=== PATIENT | male | born 1980 | race African-American/Black ===

== ENCOUNTER 2020-01-12 01:24 | Emergency (ER) | payer MEDICAID ==
[2020-01-12] MEDS ORDERED: niCARdipine 25 MG/10 ML VIAL ONE (01:52)
[2020-01-12] MEDS ORDERED: Midazolam HCl 2 mg/2 ml Vial ONE ×2 (01:54→01:57)
[2020-01-12 02:00] LABS: Hemoglobin 13.5 g/dL (14.0-18.0); INR-International Normal Ratio 1.1; Mean Corpuscular HGB CONC 29.6 g/dL (32.0-36.0); Mean Corpuscular Hemoglobin 26.6 pg (27.0-31.0); Mean Corpuscular Volume 89.9 fL (78.0-98.0); PTT 25.2 sec (22.9-36.1); Prothrombin Time 13.8 sec (12.0-14.7); Red Blood Cell (RBC) Count 5.09 mill/uL (4.70-6.10); White Blood Cell (WBC) Count 9.4 thou/uL (4.8-10.8)
[2020-01-12 02:01] LABS: #Basophils 0.1 thou/uL (0.0-0.2); #Eosinphils 0.1 thou/uL (0.0-0.7); #Lymphocytes 2.2 thou/uL (1.20-3.40); #Monocytes 0.8 thou/uL (0.11-0.59); #Neutrophils 6.2 thou/uL (1.40-6.50); %Basophils 0.7 % (0.0-1.0); %Eosinophils 1.6 % (0.0-10.0); %Lymphocytes 23.3 % (21.0-51.0); %Monocytes 8.8 % (0.0-10.0); %Neutrophils 65.7 % (42.0-75.0); Mean Platelet Volume 6.8 fL (7.4-10.4); Platelet Count 231 thou/uL (130-400); RBC Distribution Width 18.5 % (11.5-14.5)
[2020-01-12 02:02] LABS: Anisocytosis MODERATE=16-30 cells (100X) (0-5/hpf); Hypochromia SLIGHT = 6-15 cells (100X) (0-5/hpf)
[2020-01-12 02:04] LABS: Burr Cells MARKED = >16 cells (100X) (0-1/hpf); Tear Drops SLIGHT = 2-5 cells (100X) (0-1/hpf)
[2020-01-12] MEDS ORDERED: Succinylcholine Chloride 20 MG/ML 10 ml SYRINGE FS ONE (02:05)
[2020-01-12] MEDS ORDERED: Rocuronium Bromide 10 MG/ML (10ML VIAL) ONE (02:05)
[2020-01-12 02:25] LABS: Carbon Dioxide 22 mmol/L (22-29); Chloride 103 mmol/L (98-107); Potassium 4.1 mmol/L (3.5-5.1); Sodium 144 mmol/L (136-145)
[2020-01-12 02:26] LABS: Anion Gap 23 mmol/L (10-20); BUN (Urea Nitrogen) 64 mg/dL (8.9-20.6); Calc. Creatinine Clearance 0 mL/min (70-130); Calcium 9.3 mg/dL (7.8-10.44); Estimated GFR-MDRD 10; Glucose 137 mg/dL (70-105)
[2020-01-12 02:27] LABS: ALT (SGPT) 95 U/L (8-55); AST (SGOT) 55 U/L (5-34); Albumin 4.8 g/dL (3.5-5.0); Alkaline Phosphatase 113 U/L (40-110); Bilirubin, Total 0.8 mg/dL (0.2-1.2); CKMB 1.7 ng/mL (0-6.6); Globulin 2.7 g/dL (2.4-3.5); Protein, Total 7.5 g/dL (6.0-8.3); Troponin I 0.078 ng/mL (< 0.028)
[2020-01-12 06:18] LABS: Bilirubin Negative (Negative); Blood, Urine Small (Negative); Clarity Clear (Clear); Glucose, Urine (Dipstick) Negative (Negative); Leukocyte Negative (Negative); Nitrite Negative (Negative); Protein, Urine (Dipstick) > or equal to 300 mg/dL (Neg-Trace); Urobilinogen 0.2 mg/dL (Less than 2)
[2020-01-12 06:22] LABS: MDiff Complete? YES
[2020-01-12 06:29] LABS: Bacteria/HPF 1+ HPF (None Seen); RBC/HPF 0-3 HPF (0-3); Squamous Epithelial 0-3 HPF (0-3); WBC/HPF 0-3 HPF (0-3)
--- NOTE | 2020-01-12 09:30 | CT ---
PRELIMINARY REPORT/DIRECT RADIOLOGY/EMERGENCY AFTER HOURS PROCEDURE This report was discussed with Davy Dale RN by Benita Da Silva on Jan 12, 2020 01:49:00 CDT. Koko gutierrez electronically signed by Benita Da Silva on January 12, 2020 1:52:00 AM CDT Exam: Unenhanced CT brain. History: Stroke. Comparison: None. Findings: Image quality is degraded due to motion artifact. Calvarium is intact. Paranasal sinuses are clear. Large hemorrhage is present centered within the right basal ganglia and extending into th e right temporal and frontal lobes. It measures 8.7 x 3.8 cm in AP by width. Blood products are pre sent within the right lateral ventricle, third ventricle, and fourth ventricle. There is narrowing o f the ambient cistern. There is midline shift from right to left measuring 1 cm. Sulcal effacement is present suggesting diffuse cerebral edema. Impression: Large intracranial hemorrhage measuring 8.7 x 3.8 cm centered in the right basal ganglia. Associated mass effect. Blood within the ventricles. Effacement of sulci concerning for diffuse c erebral edema. ELECTRONICALLY SIGNED BY: Lily Keith MD Jan 12, 2020 1:44:51 AM CDT FINAL REPORT CT STROKE PROTOCOL: I agree with the preliminary report provided. Image detail is limited by motion artifact. There is a large right-sided intraparenchymal hemorrhage centered within the region of the right basal ganglia measuring 8.6 x 3.9 cm suggesting mild surrounding vasogenic edema. There is intraventricular exten nicholas of hemorrhage into the right lateral ventricle, 3rd ventricle, and 4th ventricle. There is righ t-to-left midline shift of 1.4 cm. No hydrocephalus is evident. Visualized aspects of the basilar c istern remain patent. IMPRESSION: Large intraparenchymal hemorrhage within the right cerebral hemisphere centered at the level of the r ight basal ganglia with prominent surrounding vasogenic edema and mass effect inducing 1.4 cm of righ t-to-left midline shift. Additionally, there is hemorrhagic extension into the right lateral ventric le, 3rd ventricle, and 4th ventricle. Continued close CT followup is recommended. POS:
--- NOTE | 2020-01-12 10:55 | RAD ---
CHEST 1 VIEW: INDICATION: History of intubation. COMPARISON: Prior exam dated 06/18/2019. FINDINGS: The patient is intubated. The ET tube projects to the level of the right mainstem bronchus. Gastric catheter projects below the left hemidiaphragm. There is cardiomegaly and diffuse airspace disease suspicious for CHF. There are small bilateral pleural effusions. No pneumothorax is evident. IMPRESSION: 1. Right mainstem intubation. The patient did have a followup chest radiograph 30 minutes later whi ch demonstrated retraction of the endotracheal tube. 2. Diffuse airspace edema and cardiomegaly suspicious for volume overload or congestive heart failur e. POS: BH
== END 2020-01-12 02:30 | disposition short-term general hospital (02) ==
LOC: MADERS 01:24
DX: I62.9 Nontraumatic intracranial hemorrhage, unspecified (principal); I10 Essential (primary) hypertension; F17.210 Nicotine dependence, cigarettes, uncomplicated; Z79.899 Other long term (current) drug therapy
CPT/HCPCS: 31500; 51702; 70450; 71045; 80053; 81003; 81015; 82553; 84484; 85025; 85610; 85730; 93005; 94760; 96374; 96375; J2250; J7050